=== PATIENT | female | born 1970 | race Caucasian/White ===

== ENCOUNTER 2016-06-27 10:05 | Outpatient (CLI) | payer OTHER | END 2016-06-27 10:06 | disposition home or self-care (01) | DX: R14.0 Abdominal distension (gaseous) (principal); Z13.220 Encounter for screening for lipoid disorders; Z13.1 Encounter for screening for diabetes mellitus ==

== ENCOUNTER 2016-07-07 11:11 | Outpatient (CLI) | payer OTHER | END 2016-07-07 11:12 | disposition home or self-care (01) | DX: R14.0 Abdominal distension (gaseous) (principal); N28.1 Cyst of kidney, acquired ==

== ENCOUNTER 2016-10-04 19:47 | Outpatient (CLI) | payer OTHER ==
--- NOTE | 2016-10-05 11:52 | Ultrasound Report ---
PELVIC ULTRASOUND: 10/04/2016 CLINICAL HISTORY: The patient has distention. TECHNIQUE: Transabdominal pelvic ultrasound performed for global evaluation. Transvaginal pelvic ultr asound performed for detailed evaluation. Real-time scanning performed and static images obtained. FINDINGS: The uterus measures 8.4 cm by 11.4 cm by 4.9 cm for a volume of 94.3 cubic centimeters. Th e endometrial echo complex has a diameter of 9 mm. No enhanced vascular flow is seen within the centr al intrauterine echo. The configuration of the central intrauterine echo complex is within normal retana its for a menstruating female. Equivocal finding is noted in regards to a small hyperechoic fibroid within the anterior myometrium o f the uterine fundus. This measures 2.3 cm by 1.4 cm by 2 cm. The ovaries demonstrate the right ovary to measure 1.9 cm by 1.4 cm. It is not well seen. The left ov alma measures 2.7 cm by 1.7 cm, and also is not well visualized. IMPRESSION: FINDINGS ARE SUSPICIOUS FOR A SMALL MYOMETRIAL FIBROID IN THE ANTERIOR ASPECT OF THE KARLA RINE FUNDUS MEASURING 2.3 CM BY 1.4 CM BY 2 CM. JOB #: [id number] EXT JOB #:[id number]
== END 2016-10-04 19:48 | disposition home or self-care (01) ==
LOC: DI 19:47
PROVIDERS: ATTEND Physician Assistant Medical
DX: R14.0 Abdominal distension (gaseous) (principal)
CPT/HCPCS: 76830; 76856

== ENCOUNTER 2017-06-23 18:40 | Outpatient (CLI) | payer OTHER | END 2017-06-23 18:41 | disposition EMS.NT | LOC: EMS 18:40 | PROVIDERS: ATTEND Surgery | DX: R53.1 Weakness (principal); R20.2 Paresthesia of skin; R53.83 Other fatigue ==

== ENCOUNTER 2017-07-02 08:00 | Outpatient (CLI) | payer OTHER ==
[2017-07-02 18:50] LABS: BASOPHILS # (AUTO) 0.1 10^3/uL (0.0-0.1); BASOPHILS % (AUTO) 1.1 %; EOSINOPHILS # (AUTO) 0.1 10^3/uL (0.0-0.7); EOSINOPHILS % (AUTO) 1.9 %; HGB - HEMOGLOBIN 13.4 g/dL (12.0-16.0); LYMPHOCYTES # (AUTO) 1.7 10^3/uL (1.5-3.5); LYMPHOCYTES % (AUTO) 22.2 %; MEAN CORPUSCULAR HEMOGLOBIN 27.6 pg (27.0-31.0); MEAN CORPUSCULAR HGB CONC 31.9 g/dL (32.0-36.0); MEAN CORPUSCULAR VOLUME 86.5 fL (81.0-99.0); MONOCYTES # (AUTO) 0.4 10^3/uL (0.0-1.0); MONOCYTES % (AUTO) 5.1 %; NEUTROPHILS # (AUTO) 5.2 10^3/uL (1.5-6.6); NEUTROPHILS % (AUTO) 69.7 %; PLT - PLATELET COUNT 352 10^3/uL (130-450); RED BLOOD COUNT 4.85 10^6/uL (4.20-5.40); RED CELL DISTRIBUTION WIDTH 14.4 % (12.0-15.0); WHITE BLOOD COUNT 7.5 x10^3/uL (4.8-10.8)
[2017-07-02 19:07] LABS: ALBUMIN 4.1 g/dL (3.2-5.5); ALBUMIN/GLOBULIN RATIO 1.3 (1.0-2.2); ALKALINE PHOSPHATASE 71 IU/L (42-121); ALT ALANINE AMINOTRANSFERASE 10 IU/L (10-60); AST ASPARTATE AMINOTRANSFERASE 20 IU/L (10-42); BILIRUBIN,TOTAL 0.3 mg/dL (0.2-1.0); BUN - BLOOD UREA NITROGEN 11 mg/dL (6-20); CALCIUM 8.9 mg/dL (8.5-10.3); CARBON DIOXIDE - CO2 23 mmol/L (21-32); CHLORIDE 105 mmol/L (101-111); CHOL/HDL RATIO 3.4 (<4.4); CHOLESTEROL 221 mg/dL; CREATININE 0.7 mg/dL (0.4-1.0); GFR - MDRD 90 (>89); GLUCOSE 80 mg/dL (70-100); HDL CHOLESTEROL 65 mg/dL; LDL CHOLESTEROL,CALCULATED 138 mg/dL; LDL/HDL RATIO 2.1 (<4.4); SODIUM 135 mmol/L (135-145); TOTAL PROTEIN 7.3 g/dL (6.7-8.2); VLDL CHOLESTEROL 18 mg/dL
== END 2017-07-02 08:01 | disposition home or self-care (01) ==
LOC: LAB.WCP 08:00
PROVIDERS: ATTEND Family Medicine
DX: E16.1 Other hypoglycemia (principal)
CPT/HCPCS: 36415; 80053; 80061; 83721; 84443; 85025

== ENCOUNTER 2017-07-11 08:00 | Outpatient (CLI) | payer OTHER ==
[2017-07-11 10:58] LABS: BILIRUBIN,URINE NEGATIVE (NEGATIVE); GLUCOSE, URINE (UA) NEGATIVE (NEGATIVE); KETONES,URINE (UA) NEGATIVE (NEGATIVE); LEUKOCYTE ESTERASE, URINE NEGATIVE (NEGATIVE); NITRITE,URINE NEGATIVE (NEGATIVE); OCCULT BLOOD,URINE NEGATIVE (NEGATIVE); PROTEIN,URINE NEGATIVE (NEGATIVE); UROBILINOGEN,URINE 0.2 (NORMAL) E.U./dL (NORMAL)
[2017-07-11 10:59] LABS: CLARITY,URINE CLEAR (CLEAR)
[2017-07-11 11:16] LABS: BACTERIA,URINE Moderate /HPF (None Seen); RBC,URINE 0-5 /HPF (0-5); SQUAMOUS EPITHELIAL CELL,UR MOD Squamous (<= Few)
[2017-07-11 11:17] LABS: MUCUS,URINE Marked Strands
== END 2017-07-11 08:01 | disposition home or self-care (01) ==
LOC: LAB.R 08:00
PROVIDERS: ATTEND Physician Assistant Medical
DX: N20.0 Calculus of kidney (principal)
CPT/HCPCS: 81001; 87086

== ENCOUNTER 2017-07-11 11:01 | Outpatient (CLI) | payer OTHER ==
--- NOTE | 2017-07-11 11:59 | CT Report ---
CT ABDOMEN AND PELVIS WITHOUT CONTRAST: 07/11/2017 CLINICAL INDICATION: Flank pain, history of kidney stones. TECHNIQUE: Axial CT images of the abdomen and pelvis were obtained without intravenous contrast. COMPARISON: Ultrasound 07/07/2016. FINDINGS: Limited evaluation of the lung bases demonstrates a small hiatal hernia. ABDOMEN: The kidneys demonstrate no evidence of hydronephrosis or nephrolithiasis. Right renal cyst is stable from previous ultrasound. The gallbladder is not dilated. Allowing for the lack of intravenous contrast enhancement, the liver, spleen, pancreas and adrenal glands are unremarkable. No bowel dilatation, free gas, or free fluid is present. No abdominal adenopathy is seen. PELVIS: The pelvic organs appear unremarkable. The appendix is seen in the right lower quadrant, and demonstrates normal caliber. No distal hydroureter or ureterolithiasis is seen. Osseous structures are unremarkable. IMPRESSION: NO EVIDENCE OF NEPHROLITHIASIS OR HYDRONEPHROSIS. NORMAL APPENDIX. NO EVIDENT ETIOLOGY FOR PATIENT'S PAIN. CT DOSE REDUCTION STATEMENT In accordance with CT protocol optimization, one or more of the following dose reduction techniques were utilized for this exam: automated exposure control, adjustment of mA and/or KV based on patient size, or use of iterative reconstructive technique. TD: 07/11/2017 11:59
== END 2017-07-11 11:02 | disposition home or self-care (01) ==
LOC: DI 11:01
PROVIDERS: ATTEND Physician Assistant Medical
DX: R10.9 Unspecified abdominal pain (principal); N20.0 Calculus of kidney
CPT/HCPCS: 74176; 81001; 87086

== ENCOUNTER 2018-09-16 11:23 | Outpatient (CLI) | payer OTHER ==
[2018-09-16 18:25] LABS: BASOPHILS # (AUTO) 0.1 10^3/uL (0.0-0.1); BASOPHILS % (AUTO) 0.8 %; EOSINOPHILS # (AUTO) 0.1 10^3/uL (0.0-0.7); EOSINOPHILS % (AUTO) 1.4 %; HGB - HEMOGLOBIN 13.4 g/dL (12.0-16.0); MEAN CORPUSCULAR HGB CONC 32.7 g/dL (32.0-36.0); MEAN CORPUSCULAR VOLUME 85.6 fL (81.0-99.0); MEAN PLATELET VOLUME 8.7 fL (7.9-10.8); MONOCYTES # (AUTO) 0.5 10^3/uL (0.0-1.0); MONOCYTES % (AUTO) 6.1 %; NEUTROPHILS # (AUTO) 5.4 10^3/uL (1.5-6.6); NEUTROPHILS % (AUTO) 66.7 %; PLT - PLATELET COUNT 382 10^3/uL (130-450); RED BLOOD COUNT 4.77 10^6/uL (4.20-5.40); RED CELL DISTRIBUTION WIDTH 14.6 % (12.0-15.0); WHITE BLOOD COUNT 8.1 x10^3/uL (4.8-10.8)
[2018-09-16 18:35] LABS: ALBUMIN 4.1 g/dL (3.2-5.5); ALBUMIN/GLOBULIN RATIO 1.1 (1.0-2.2); BILIRUBIN,TOTAL 0.7 mg/dL (0.2-1.0); CALCIUM 9.2 mg/dL (8.5-10.3); CREATININE 0.9 mg/dL (0.4-1.0); TOTAL PROTEIN 7.8 g/dL (6.7-8.2)
== END 2018-09-16 11:24 | disposition home or self-care (01) ==
LOC: LAB.F 11:23
PROVIDERS: ATTEND Physician Assistant Medical
DX: Z20.828 Contact with and (suspected) exposure to other viral communicable diseases (principal); R53.83 Other fatigue
CPT/HCPCS: 36415; 80053; 81599; 84443; 85025; 86765

== ENCOUNTER 2018-10-23 16:19 | Outpatient (CLI) | payer OTHER ==
--- NOTE | 2018-10-24 09:15 | CT Report ---
Reason: SINUSITIS, CHRONIC Procedure Date: 10/23/2018 Accession Number: [id number] / [id number] Procedure: CT - Sinuses CPT Code: FULL RESULT: EXAM: CT SINUS EXAM DATE: 10/23/2018 04:47 PM. HISTORY: Sinusitis, chronic. COMPARISONS: SINUS 10/04/2007 1:48 PM (report not provided). TECHNIQUE: Routine multi-axial CT imaging performed through the sinuses. Iodinated IV contrast: None. Reconstructions: Sagittal and coronal. In accordance with CT protocol optimization, one or more of the following dose reduction techniques were utilized for this exam: automated exposure control, adjustment of mA and/or KV based on patient size, or use of iterative reconstructive technique. FINDINGS: RIGHT Frontal: Normal. Ethmoid: Normal. Maxillary: Normal. Sphenoid: Normal. Drainage Pathways: The frontal recess, ostiomeatal complex and sphenoethmoidal recess are patent and normal. LEFT Frontal: Normal. Ethmoid: Normal. Maxillary: Normal. Sphenoid: Normal. Drainage Pathways: The frontal recess, ostiomeatal complex and sphenoethmoidal recess are patent and normal. Nasal Cavity: Normal. No mass or significant anatomic abnormality evident. Note is made of bilateral funmi bullosa air cells within the middle turbinates. Osseous Structures: Unremarkable. The visualized mastoid air cells and middle ear cavities are clear. Orbits: Unremarkable. 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 IMPRESSION: 1. Normal Sinus CT. No sinusitis. RADIA
== END 2018-10-23 16:20 | disposition home or self-care (01) ==
LOC: DI 16:19
PROVIDERS: ATTEND Physician Assistant Medical
DX: J32.9 Chronic sinusitis, unspecified (principal)
CPT/HCPCS: 70486

== ENCOUNTER 2019-02-28 08:00 | Outpatient (CLI) | payer OTHER | END 2019-02-28 08:01 | disposition home or self-care (01) | LOC: LAB.R 08:00 | PROVIDERS: ATTEND Registered Nurse | DX: J02.9 Acute pharyngitis, unspecified (principal); J32.9 Chronic sinusitis, unspecified | CPT/HCPCS: 87070 ==

== ENCOUNTER 2019-05-14 13:43 | Emergency (ER) | payer OTHER, BC ==
[2019-05-14 13:56] VITALS: BP 119/75
--- NOTE | 2019-05-14 14:17 | XRAY Report ---
Reason: Trauma Procedure Date: 05/14/2019 Accession Number: [id number] / [id number] Procedure: XR - Knee 4 View RT CPT Code: Final Report FULL RESULT: EXAM: RIGHT KNEE RADIOGRAPHY EXAM DATE: 05/14/2019 02:11 PM. CLINICAL HISTORY: Right knee pain. COMPARISON: XR ANKLE COMPLETE MIN 3 VIEW 01/07/2007 12:58 PM. TECHNIQUE: 3 views. FINDINGS: Bones: Normal. No fractures or bone lesions. Joints: Normal. No effusion. No subluxations. Soft Tissues: Normal. No soft tissue swelling. IMPRESSION: Normal knee radiography. RADIA
[2019-05-14] MEDS ORDERED: HYDROmorphone 2 MG TABLET PO STA (16:01)
--- NOTE | 2019-05-14 16:07 | ED Physician Documentation ---
PD HPI LOWER EXT INJURY - Stated complaint Stated Complaint: RT KNEE INJ - Chief complaint Chief Complaint: Trauma Ext - History obtained from History obtained from: Patient - History of Present Illness PD HPI LOW EXT INJURY LOCATION: Right, Knee Where injury occurred: Work Pain level max: 8 Pain level now: 6 Improved by: Rest Worsened by: Moving, Palpating - Additional information Additional information: 49-year-old female states that she was at work today when she stood up from her desk and felt a pop in her right knee. Has had pain in the knee since that time. No trauma. No injury. Worse with walking and better with rest. Did not take anything for the pain prior to arrival. 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 - Present Medications Home Medications: Ambulatory Orders Medication Instructions Recorded Confirmed HYDROmorphone [Dilaudid] 2 mg PO Q4H PRN #10 tablet 05/14/19 - Allergies Allergies/Adverse Reactions: Allergies Allergy/AdvReac Type Severity Reaction Status Date / Time acetaminophen [From Vicodin] Allergy Hives Verified 05/14/19 13:47 adhesive tape Allergy Hives Verified 05/14/19 13:47 clarithromycin [From Biaxin] Allergy Hives Verified 05/14/19 13:47 clindamycin Allergy Hives Verified 05/14/19 13:47 hydrocodone [From Vicodin] Allergy Hives Verified 05/14/19 13:47 Penicillins Allergy Hives Verified 05/14/19 13:47 - Social History Does the pt smoke?: No Smoking Status: Never smoker Does the pt drink ETOH?: Yes ETOH Use: Liquor - Immunizations Immunizations are current?: Yes PD ED PE NORMAL - Vitals Vital signs reviewed: Yes - General General: Alert and oriented X 3, No acute distress, Well developed/nourished - HEENT HEENT: Moist mucous membranes - Neck Neck: Supple, no meningeal sign - Cardiac Cardiac: RRR - Respiratory Respiratory: No respiratory distress, Clear bilaterally - Derm Derm: Warm and dry - Extremities Extremities: Other (Tender to palpation on the medial aspect of the right knee. ACL, MCL, PCL, LCL are intact. Mild joint effusion. No swelling. No deformity. Neurovascular intact) - Neuro Neuro: Alert and oriented X 3 - Psych Psych: Normal mood, Normal affect Results - Vitals Vitals: Vital Signs - 24 hr 05/14/19 13:48 Temperature 36.7 C Heart Rate 113 H Respiratory 15 Rate Blood Pressure 119/75 O2 Saturation 98 Oxygen O2 Source Room air - Rads (name of study) Right knee x-ray Radiology: Prelim report reviewed, EMP read contemporaneously, See rad report (No acute abnormality) PD MEDICAL DECISION MAKING - ED course Complexity details: reviewed results, re-evaluated patient, considered differential, d/w patient ED course: Patient with right knee pain of unclear etiology. Possible meniscus injury? We will have her follow-up with her doctor for repeat evaluation in 1 week. Placed in an articulating knee brace for comfort. Neurovascular intact. Patient counseled regarding signs and symptoms for which I believe and urgent re- evaluation would be necessary. Patient with good understanding of and agreement to plan and is comfortable going home at this time This document was made in part using voice recognition software. While efforts are made to proofread this document, sound alike and grammatical errors may oc cur. L&I paperwork filled out. Departure - Departure Disposition: 01 Home, Self Care Clinical Impression: Right knee pain Qualifiers: Chronicity: acute Qualified Code(s): M25.561 - Pain in right knee Condition: Good Instructions: ED Meniscal Injury Knee Poss Follow-Up: Jackelin Yuan PA-C [Primary Care Provider] - [facility] [Provider Group] - Within 1 week Prescriptions: HYDROmorphone [Dilaudid] 2 mg PO Q4H PRN #10 tablet PRN Reason: knee pain Comments: You may bear weight as tolerated. Wear the brace as needed for comfort. You can use crutches as well. You should be reevaluated in 1 week when the swelling has decreased and have orthopedics recheck your knee. Do not drink alcohol or drive while on narcotic pain medicine. Note that many narcotic pain relievers also contain tylenol/acetaminophen. Please ensure that your total dose of acetaminophen from all sources does not exceed 3 grams (3000mg) per day. You may constipated on this medication, take a stool softener such as "Colace" twice a day while you are on it. Also recommend a [id number] laxative such as senna or MiraLAX any day that you do not have a bowel movement. If you received narcotic pain medication in the emergency department, do not drive or operate machinery for the next 24 hours. Discharge Date/Time: 05/14/19 16:57
== END 2019-05-14 16:57 | disposition home or self-care (01) ==
LOC: ED 13:43
DX: M25.561 Pain in right knee (principal); X50.9XXA Other and unspecified overexertion or strenuous movements or postures, initial encounter; Y99.0 Civilian activity done for income or pay
CPT/HCPCS: 73564; 99283; 99284; A9270; 1040M

== ENCOUNTER 2019-07-30 18:00 | Outpatient (CLI) | payer BC | END 2019-07-30 18:01 | disposition home or self-care (01) | LOC: COV 18:00 | PROVIDERS: ATTEND Family Medicine | DX: R50.9 Fever, unspecified (principal); R06.2 Wheezing; R06.02 Shortness of breath | CPT/HCPCS: 81599 ==

== ENCOUNTER 2020-01-08 12:32 | Outpatient (CLI) | payer BC | END 2020-01-08 12:33 | disposition home or self-care (01) | LOC: COV 12:32 | PROVIDERS: ATTEND Family Medicine | DX: U07.1 COVID-19 (principal) ==

== ENCOUNTER 2020-01-11 20:31 | Outpatient (CLI) | payer BC | END 2020-01-11 20:32 | disposition critical access hospital (66) | LOC: EMS 20:31 | PROVIDERS: ATTEND Surgery | DX: R06.02 Shortness of breath (principal); Z20.828 Contact with and (suspected) exposure to other viral communicable diseases | CPT/HCPCS: A0425; A0429 ==

== ENCOUNTER 2020-05-12 12:01 | Outpatient (CLI) | payer BC ==
[2020-05-12 14:55] LABS: BASOPHILS # (AUTO) 0.1 10^3/uL (0.0-0.1); BASOPHILS % (AUTO) 1.4 %; EOSINOPHILS # (AUTO) 0.2 10^3/uL (0.0-0.7); EOSINOPHILS % (AUTO) 2.3 %; LYMPHOCYTES # (AUTO) 1.5 10^3/uL (1.5-3.5); LYMPHOCYTES % (AUTO) 19.6 %; MEAN CORPUSCULAR HGB CONC 32.3 g/dL (32.0-36.0); MEAN CORPUSCULAR VOLUME 89.5 fL (81.0-99.0); MEAN PLATELET VOLUME 9.9 fL (7.9-10.8); MONOCYTES # (AUTO) 0.5 10^3/uL (0.0-1.0); MONOCYTES % (AUTO) 5.9 %; NEUTROPHILS # (AUTO) 5.4 10^3/uL (1.5-6.6); NEUTROPHILS % (AUTO) 70.3 %; PLT - PLATELET COUNT 407 10^3/uL (130-450); RED BLOOD COUNT 4.49 10^6/uL (4.20-5.40); RED CELL DISTRIBUTION WIDTH 13.9 % (12.0-15.0); WHITE BLOOD COUNT 7.7 x10^3/uL (4.8-10.8)
[2020-05-12 15:09] LABS: ALBUMIN 3.8 g/dL (3.2-5.5); ALBUMIN/GLOBULIN RATIO 1.1 (1.0-2.2); BILIRUBIN,TOTAL 0.5 mg/dL (0.2-1.0); CALCIUM 8.8 mg/dL (8.5-10.3); CREATININE 0.6 mg/dL (0.4-1.0); TOTAL PROTEIN 7.2 g/dL (6.7-8.2)
== END 2020-05-12 23:59 | disposition home or self-care (01) ==
LOC: LAB.S 12:01
PROVIDERS: ATTEND Physician Assistant Medical
DX: R21 Rash and other nonspecific skin eruption (principal); R07.0 Pain in throat
CPT/HCPCS: 36415; 80053; 85025; 85651

== ENCOUNTER 2020-06-26 20:56 | Emergency (ER) | payer BC ==
--- NOTE | 2020-06-26 21:41 | ED Physician Documentation ---
PD HPI FOCAL NEURO - Stated complaint Stated Complaint: NUMB FACE - Chief complaint Chief Complaint: Neuro - History obtained from History obtained from: Patient - History of Present Illness Timing - onset: Enter time (18:40), Today Timing - details: Abrupt onset Severity of deficit: Mild Numbness: Face Associated symptoms: No: Headache, Fever Similar symptoms before: Has not had sx before Recently seen: Not recently seen - Additional information Additional information: c/o rapid onset bilateral facial numbness from infraorbital regions to neck with faint erythema. she was at home at rest at time of onset. she felt hot (per patient) but took her temperature and it was normal. she thought it might be an allergic reaction and thus took three benadryl without apparent improvement. denies h/o similar symptoms. denies headache, dyspnea, pruritis, lightheadedness. denies oropharyngeal swelling or constriction Review of Systems Constitutional: denies: Fever Eyes: reports: Reviewed and negative Ears: reports: Reviewed and negative Nose: reports: Congestion (currently being treated for sinus infection with antibiotic (bactrim) and tessalon ; she has taken these for 3 days with most recent doses taken this morning) Throat: denies: Sore throat Cardiac: reports: Reviewed and negative Respiratory: reports: Reviewed and negative GI: reports: Other (heartburn (per patient) started in ED while awaiting evaluation). 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 - Present Medications Home Medications: Ambulatory Orders Medication Instructions Recorded Confirmed Acetaminophen with Codeine PO PRN PRN 06/26/20 [Acetaminop-Codeine 120-12 mg/5] Amitriptyline [Elavil] 75 mg PO QPM 06/26/20 06/26/20 Azelastine/Fluticasone [Dymista 1 spray MADI DAILY 06/26/20 06/26/20 Nasal [place]] Montelukast [Singulair] 10 mg PO DAILY 06/26/20 06/26/20 SULFAM/TRIM 800/160 Prepack 2 06/26/20 [BACTRIM DS 800/160 Prepack 2] predniSONE [Prednisone 21-TAB dose 06/26/20 pack] - Allergies Allergies/Adverse Reactions: Allergies Allergy/AdvReac Type Severity Reaction Status Date / Time acetaminophen [From Vicodin] Allergy Hives Verified 01/11/20 21:48 adhesive tape Allergy Hives Verified 01/11/20 21:48 clarithromycin [From Biaxin] Allergy Hives Verified 01/11/20 21:48 clindamycin Allergy Hives Verified 01/11/20 21:48 hydrocodone [From Vicodin] Allergy Hives Verified 01/11/20 21:48 Penicillins Allergy Hives Verified 01/11/20 21:48 - Social History Does the pt smoke?: No Smoking Status: Never smoker Does the pt drink ETOH?: Yes Does the pt have substance abuse?: No - Immunizations Immunizations are current?: Yes PD ED PE NORMAL - Vitals Vital signs reviewed: Yes - General General: Alert and oriented X 3, No acute distress, Well developed/nourished - HEENT HEENT: Moist mucous membranes, Pharynx benign - Neck Neck: Supple, no meningeal sign - Cardiac Cardiac: RRR, No murmur - Respiratory Respiratory: No respiratory distress, Clear bilaterally - Derm Derm: Normal color, Other (I do not appreciate any facial erythema on my exam) - Neuro Neuro: Alert and oriented X 3, No motor deficit, No sensory deficit (subjective, mild decreased LTS bilateral face infraorbital regions , chin, mandible, anterior upper neck), Normal speech Results - Vitals Vitals: Vital Signs - 24 hr 06/26/20 06/26/20 06/26/20 20:58 21:32 22:02 Temperature 36.2 C L Heart Rate 115 H 111 H 102 H Respiratory 18 16 18 Rate Blood Pressure 141/105 H 139/84 H 138/87 H O2 Saturation 98 100 98 06/26/20 06/26/20 06/26/20 22:30 23:00 23:35 Temperature Heart Rate 98 93 94 Respiratory 18 13 20 Rate Blood Pressure 132/80 H 128/82 H 128/82 H O2 Saturation 100 99 100 Oxygen O2 Source Room air - Labs Labs: Laboratory Tests 06/26/20 06/26/20 06/26/20 21:10 21:10 21:10 WBC 12.9 H RBC 4.60 Hgb 13.2 Hct 40.3 MCV 87.6 MCH 28.7 MCHC 32.8 RDW 14.2 Plt Count 537 H MPV 9.6 Neut # (Auto) 11.2 H Lymph # (Auto) 1.4 L [place] # (Auto) 0.1 Eos # (Auto) 0.0 Baso # (Auto) 0.0 Absolute Nucleated RBC 0.00 Nucleated RBC % 0.0 Sodium 137 Potassium 3.4 L Chloride 100 L Carbon Dioxide 22 Anion Gap 15.0 H BUN 12 Creatinine 1.0 Estimated GFR (MDRD) 59 L Glucose 112 H Calcium 10.1 Total Bilirubin 0.4 AST 21 ALT 15 Alkaline Phosphatase 85 Total Protein 8.7 H Albumin 4.4 Globulin 4.3 H Albumin/Globulin Ratio 1.0 Lipase 29 TSH 0.36 PD MEDICAL DECISION MAKING - ED course Complexity details: reviewed results, re-evaluated patient, considered differential, d/w patient ED course: NAD during ED stay and stable vitals although mild tachycardia noted, given IV fluids with subsequent normal heart rate. I do not see any erythema nor swelling of the face. 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 localized allergic reaction also unlikely given lack of findings on exam and description would be atypical for this. her tests are reassuring and nondiagnostic. further emergent testing not indicated at this time and she is instructed to return if worse, follow up with PMD in 3-5 days Departure - Departure Disposition: 01 Home, Self Care Clinical Impression: Paresthesias Condition: Good Instructions: ED Paraesthesias Follow-Up: MURRAY HINOJOSA PA-C [Primary Care Provider] - Discharge Date/Time: 06/26/20 23:45
[2020-06-26] MEDS ORDERED: FAMOTIDINE 20 MG/2 ML VIAL IVP STA (22:03)
[2020-06-26] MEDS ORDERED: SODIUM CHLORIDE 0.9% 500 ML IV STA (22:04)
[2020-06-26 22:08] LABS: BASOPHILS % (AUTO) 0.2 %; EOSINOPHILS % (AUTO) 0.1 %; HCT - HEMATOCRIT 40.3 % (37.0-47.0); HGB - HEMOGLOBIN 13.2 g/dL (12.0-16.0); LYMPHOCYTES # (AUTO) 1.4 10^3/uL (1.5-3.5); LYMPHOCYTES % (AUTO) 10.9 %; MEAN CORPUSCULAR HEMOGLOBIN 28.7 pg (27.0-31.0); MEAN CORPUSCULAR HGB CONC 32.8 g/dL (32.0-36.0); MEAN CORPUSCULAR VOLUME 87.6 fL (81.0-99.0); MEAN PLATELET VOLUME 9.6 fL (7.9-10.8); MONOCYTES # (AUTO) 0.1 10^3/uL (0.0-1.0); MONOCYTES % (AUTO) 1.1 %; NEUTROPHILS # (AUTO) 11.2 10^3/uL (1.5-6.6); NEUTROPHILS % (AUTO) 86.6 %; PLT - PLATELET COUNT 537 10^3/uL (130-450); RED CELL DISTRIBUTION WIDTH 14.2 % (12.0-15.0); WHITE BLOOD COUNT 12.9 x10^3/uL (4.8-10.8)
[2020-06-26 22:22] LABS: ALBUMIN 4.4 g/dL (3.2-5.5); BILIRUBIN,TOTAL 0.4 mg/dL (0.2-1.0); CALCIUM 10.1 mg/dL (8.5-10.3); POTASSIUM 3.4 mmol/L (3.5-5.0); TOTAL PROTEIN 8.7 g/dL (6.7-8.2)
[2020-06-26 23:04] VITALS: BP 128/82
== END 2020-06-26 23:45 | disposition home or self-care (01) ==
LOC: ED 20:56
DX: R20.2 Paresthesia of skin (principal)
CPT/HCPCS: 36415; 80053; 83690; 84443; 85025; 96361; 96374; 99284

== ENCOUNTER 2020-07-29 08:00 | Outpatient (CLI) | payer BC | END 2020-07-29 23:59 | disposition home or self-care (01) | LOC: LAB.S 08:00 | PROVIDERS: ATTEND Physician Assistant Medical | DX: R05 Cough (principal) ==

== ENCOUNTER 2020-07-29 11:49 | Outpatient (CLI) | payer BC ==
--- NOTE | 2020-07-29 14:21 | XRAY Report ---
PROCEDURE: Chest 2 View X-Ray INDICATIONS: COUGH TECHNIQUE: 2 view(s) of the chest. COMPARISON: 01/11/2020. FINDINGS: Surgical changes and devices: Fusion hardware in lower cervical spine are seen.. Lungs and pleura: No pleural effusions or pneumothorax. Lungs are clear. Mediastinum: Mediastinal contours are normal. Heart size is normal. Bones and chest wall: No suspicious bony abnormalities. Soft tissues appear unremarkable. IMPRESSION: No acute cardiopulmonary pathology. Reviewed by: Ricky Andrew MD on 07/29/2020 1:20 PM AKDT Approved by: Ricky Andrew MD on 07/29/2020 1:20 PM AKDT Station ID: [id number]
== END 2020-07-29 23:59 | disposition home or self-care (01) ==
LOC: DI.S 11:49
PROVIDERS: ATTEND Physician Assistant Medical
DX: R05 Cough (principal); Z20.822 Contact with and (suspected) exposure to COVID-19

== ENCOUNTER 2020-09-10 08:00 | Outpatient (CLI) | payer BC | END 2020-09-10 23:59 | disposition home or self-care (01) | LOC: LAB.S 08:00 | PROVIDERS: ATTEND Emergency Medicine | DX: R30.0 Dysuria (principal) | CPT/HCPCS: 87086 ==

== ENCOUNTER 2020-10-04 14:04 | Outpatient (CLI) | payer BC ==
[2020-10-04 20:09] LABS: CHOL/HDL RATIO 3.6 (<4.4); CHOLESTEROL 232 mg/dL; HDL CHOLESTEROL 65 mg/dL; LDL CHOLESTEROL,CALCULATED 140 mg/dL; LDL/HDL RATIO 2.2 (<4.4); TRIGLYCERIDES 137 mg/dL; VLDL CHOLESTEROL 27 mg/dL
== END 2020-10-04 14:05 | disposition home or self-care (01) ==
LOC: LAB.S 14:04
PROVIDERS: ATTEND Physician Assistant
DX: U07.1 COVID-19 (principal); Z82.49 Family history of ischemic heart disease and other diseases of the circulatory system; R30.0 Dysuria
CPT/HCPCS: 36415; 80061; 83721

== ENCOUNTER 2020-12-31 15:07 | Outpatient (CLI) | payer BC | END 2020-12-31 15:08 | disposition home or self-care (01) | LOC: COV 15:07 | PROVIDERS: ATTEND Family Medicine | DX: Z20.822 Contact with and (suspected) exposure to COVID-19 (principal) ==

== ENCOUNTER 2021-08-25 08:00 | Outpatient (CLI) | payer BC, OTHER ==
--- NOTE | 2021-08-25 17:18 | XRAY Report ---
PROCEDURE: Chest 2 View X-Ray INDICATIONS: CHEST PAIN/THORACIC BACK PAIN TECHNIQUE: 2 view(s) of the chest. COMPARISON: 07/29/2020.. FINDINGS: Surgical changes and devices: Cervical spine fixation hardware.. Lungs and pleura: No pleural effusions or pneumothorax. Lungs are clear. Mediastinum: Mediastinal contours are normal. Heart size is normal. Bones and chest wall: No suspicious bony abnormalities. Soft tissues appear unremarkable. IMPRESSION: No acute cardiopulmonary disease process. Reviewed by: Elle Salvador MD, PhD on 08/25/2021 5:16 PM PDT Approved by: Elle Salvador MD, PhD on 08/25/2021 5:16 PM PDT Station ID: [id number]
== END 2021-08-25 23:59 | disposition home or self-care (01) ==
LOC: DI.S 08:00
PROVIDERS: ATTEND Physician Assistant Medical
DX: R07.1 Chest pain on breathing (principal); M54.6 Pain in thoracic spine

== ENCOUNTER 2022-08-08 12:55 | Outpatient (CLI) | payer OTHER | END 2022-08-08 23:59 | disposition home or self-care (01) | LOC: LAB.S 12:55 | PROVIDERS: ATTEND Physician Assistant Medical | DX: J02.9 Acute pharyngitis, unspecified (principal) | CPT/HCPCS: 87070 ==

== ENCOUNTER 2022-08-30 19:58 | Emergency (ER) | payer OTHER ==
[2022-08-30 20:13] VITALS: BP 141/88
--- OUTSIDE RECORDS SUMMARY | 2022-08-30 20:45 | EXTERNAL MEDICAL SUMMARY RPT | Continuity of Care Document ---
Author Name Unknown Address [address] [place] [address] Phone Organization [facility] Address [address] [place] [address] Phone Care Team Providers Care Motor Teacher Name Role Phone Unavailable Unavailable Unavailable Jackelin Yuan Pa-C Unavailable Unavailable Medications date description facility 2022-08-08 00:00 [facility]otidine [facility] 2022-08-09 00:00 famotidine [facility] 2022-08-10 00:00 famotidine [facility] 2022-08-14 00:00 famotidine [facility] 2022-08-08 00:00 ALPRAZOLAM [facility] 2022-08-09 00:00 ALPRAZOLAM [facility] 2022-08-10 00:00 ALPRAZOLAM [facility] 2022-08-14 00:00 ALPRAZOLAM [facility] 2022-08-08 00:00 propranolol [facility] 2022-08-09 00:00 propranolol [facility] 2022-08-10 00:00 propranolol [facility] 2022-08-14 00:00 propranolol [facility] 2022-08-08 00:00 cyanocobalamin (vitamin b-12) [facility] 2022-08-09 00:00 cyanocobalamin (vitamin b-12) [facility] 2022-08-10 00:00 cyanocobalamin (vitamin b-12) [facility] [place] 2022-08-14 00:00 cyanocobalamin (vitamin b-12) [facility] [place] 2022-08-08 00:00 norethindrone acetate [facility] [place] 2022-08-09 00:00 norethindrone acetate [facility] [place] 2022-08-10 00:00 norethindrone acetate [facility] [place] 2022-08-14 00:00 norethindrone acetate [facility] [place] 2022-08-08 00:00 TRAZODONE HCL [facility] [place] 2022-08-09 00:00 TRAZODONE HCL [facility] [place] 2022-08-10 00:00 TRAZODONE HCL [facility] [place] 2022-08-14 00:00 TRAZODONE HCL [facility] [place] 2022-08-08 00:00 amitriptyline [facility] [place] 2022-08-09 00:00 amitriptyline [facility] [place] 2022-08-10 00:00 amitriptyline [facility] [place] 2022-08-14 00:00 amitriptyline [facility] [place] 2022-08-08 00:00 vitamin b complex [facility] [place] 2022-08-09 00:00 vitamin b complex [facility] [place] 2022-08-10 00:00 vitamin b complex [facility] [place] 2022-08-14 00:00 vitamin b complex [facility] [place] 2022-08-08 00:00 [facility]indrone [facility] [place] 2022-08-09 00:00 norethindrone acetate [facility] [place] 2022-08-10 00:00 norethindrone acetate [facility] [place] 2022-08-14 00:00 norethindrone acetate [facility] [place] 2022-08-08 00:00 DIPHENHYDRAMINE HCL [facility] [place] 2022-08-08 00:00 amitriptyline [facility] [place] 2022-08-09 00:00 amitriptyline [facility] [place] 2022-08-10 00:00 amitriptyline [facility] [place] 2022-08-14 00:00 amitriptyline [facility] [place] 2022-08-08 00:00 vitamin b complex [facility] [place] 2022-08-09 00:00 vitamin b complex [facility] [place] 2022-08-10 00:00 vitamin b complex [facility] [place] 2022-08-14 00:00 vitamin b complex [facility] [place] 2022-08-08 00:00 propranolol [facility] [place] 2022-08-09 00:00 propranolol [facility] [place] 2022-08-10 00:00 propranolol [facility] [place] 2022-08-14 00:00 propranolol [facility] [place] 2022-08-08 00:00 TRAZODONE HCL [facility] [place] 2022-08-09 00:00 TRAZODONE HCL [facility] [place] 2022-08-10 00:00 TRAZODONE HCL [facility] [place] 2022-08-14 00:00 TRAZODONE HCL [facility] [place] 2022-08-08 00:00 norethindrone acetate [facility] [place] 2022-08-09 00:00 norethindrone acetate [facility] [place] 2022-08-10 00:00 norethindrone acetate [facility] [place] 2022-08-14 00:00 norethindrone acetate [facility] [place] 2022-08-08 00:00 famotidine [facility] [place] 2022-08-09 00:00 famotidine [facility] [place] 2022-08-10 00:00 famotidine [facility] [place] 2022-08-14 00:00 famotidine [facility] [place] 2022-08-08 00:00 norethindrone acetate [facility] [place] 2022-08-09 00:00 norethindrone acetate [facility] [place] 2022-08-10 00:00 norethindrone acetate [facility] [place] 2022-08-14 00:00 norethindrone acetate [facility] [place] 2022-08-08 00:00 ALPRAZOLAM [facility] [place] 2022-08-09 00:00 ALPRAZOLAM [facility] [place] 2022-08-10 00:00 ALPRAZOLAM [facility] [place] 2022-08-14 00:00 ALPRAZOLAM [facility] [place] 2022-08-08 00:00 cyanocobalamin (vitamin b-12) [facility] [place] 2022-08-09 00:00 cyanocobalamin (vitamin b-12) [facility] [place] 2022-08-10 00:00 cyanocobalamin (vitamin b-12) [facility] [place] 2022-08-14 00:00 cyanocobalamin (vitamin b-12) [facility] [place] 2022-08-08 00:00 DEXAMETHASONE SODIUM PHOSPHATE [facility] [place] 2022-08-08 00:00 famotidine [facility] [place] 2022-08-09 00:00 famotidine [facility] [place] 2022-08-10 00:00 famotidine [facility] [place] 2022-08-14 00:00 famotidine [facility] [place] 2022-08-08 00:00 sumatriptan succinate [facility]In [facility] [place] 2022-08-09 00:00 sumatriptan succinate [facility] [place] 2022-08-10 00:00 sumatriptan succinate [facility] [place] 2022-08-14 00:00 sumatriptan succinate [facility] [place] 2022-08-08 00:00 propranolol [facility] [place] 2022-08-09 00:00 propranolol [facility] [place] 2022-08-10 00:00 propranolol [facility] [place] 2022-08-14 00:00 propranolol [facility] [place] 2022-08-08 00:00 sumatriptan succinate [facility] [place] 2022-08-09 00:00 sumatriptan succinate [facility] [place] 2022-08-10 00:00 sumatriptan succinate [facility] [place] 2022-08-14 00:00 sumatriptan succinate [facility] [place] 2022-08-08 00:00 famotidine [facility] [place] 2022-08-09 00:00 famotidine [facility] [place] 2022-08-10 00:00 famotidine [facility] [place] 2022-08-14 00:00 famotidine [facility] [place] 2022-08-08 00:00 vitamin b complex [facility] [place] 2022-08-09 00:00 vitamin b complex [facility] [place] 2022-08-10 00:00 vitamin b complex [facility] [place] 2022-08-14 00:00 vitamin b complex [facility] [place] 2022-08-08 00:00 cyanocobalamin (vitamin b-12) [facility] [place] 2022-08-09 00:00 cyanocobalamin (vitamin b-12) [facility] [place] 2022-08-10 00:00 cyanocobalamin (vitamin b-12) [facility] [place] 2022-08-14 00:00 cyanocobalamin (vitamin b-12) [facility] [place] 2022-08-08 00:00 ALPRAZOLAM [facility] [place] 2022-08-09 00:00 ALPRAZOLAM [facility] [place] 2022-08-10 00:00 ALPRAZOLAM [facility] [place] 2022-08-14 00:00 ALPRAZOLAM [facility] [place] 2022-08-08 00:00 TRAZODONE HCL [facility] [place] 2022-08-09 00:00 TRAZODONE HCL [facility] [place] 2022-08-10 00:00 TRAZODONE HCL [facility] [place] 2022-08-14 00:00 TRAZODONE HCL [facility] [place] 2022-08-08 00:00 amitriptyline [facility] [place] 2022-08-09 00:00 amitriptyline [facility] [place] 2022-08-10 00:00 amitriptyline [facility] [place] 2022-08-14 00:00 amitriptyline [facility] [place] 2022-08-08 00:00 sumatriptan succinate [facility] [place] 2022-08-09 00:00 sumatriptan succinate [facility] [place] 2022-08-10 00:00 sumatriptan succinate [facility] [place] 2022-08-14 00:00 sumatriptan succinate [facility] [place] 2022-08-08 00:00 sumatriptan succinate [facility] [place] 2022-08-09 00:00 sumatriptan succinate [facility] [place] 2022-08-10 00:00 sumatriptan succinate [facility] [place] 2022-08-14 00:00 sumatriptan succinate [facility] [place] 2022-08-08 00:00 vitamin b complex [facility] [place] 2022-08-09 00:00 vitamin b complex [facility] [place] 2022-08-10 00:00 vitamin b complex [facility] [place] 2022-08-14 00:00 vitamin b complex [facility] [place] 2022-08-08 00:00 cyanocobalamin (vitamin b-12) [facility] [place] 2022-08-09 00:00 cyanocobalamin (vitamin b-12) [facility] [place] 2022-08-10 00:00 cyanocobalamin (vitamin b-12) [facility] [place] 2022-08-14 00:00 cyanocobalamin (vitamin b-12) [facility] [place] 2022-08-08 00:00 TRAZODONE HCL [facility] [place] 2022-08-09 00:00 TRAZODONE HCL [facility] [place] 2022-08-10 00:00 TRAZODONE HCL [facility] [place] 2022-08-14 00:00 TRAZODONE HCL [facility] [place] 2022-08-08 00:00 propranolol [facility] [place] 2022-08-09 00:00 propranolol [facility] [place] 2022-08-10 00:00 propranolol [facility] [place] 2022-08-14 00:00 propranolol [facility] [place] 2022-08-08 00:00 amitriptyline [facility] [place] 2022-08-09 00:00 amitriptyline [facility] [place] 2022-08-10 00:00 amitriptyline [facility] [place] 2022-08-14 00:00 amitriptyline [facility] [place] 2022-08-08 00:00 ALPRAZOLAM [facility] [place] 2022-08-09 00:00 ALPRAZOLAM [facility] [place] 2022-08-10 00:00 ALPRAZOLAM [facility] [place] 2022-08-14 00:00 ALPRAZOLAM [facility] [place] Problems date description facility 2022-08-08 00:00 Insomnia [facility] [place] 2022-08-08 00:00 Anxiety disorder [facility] [place] 2022-08-08 00:00 Family problems [facility] [place] 2022-08-08 00:00 Family history of alcoholism [facility] [place] 2022-08-08 00:00 Anxiety state, unspecified [facility] [place] 2022-08-08 00:00 Depressive disorder, not elsewhere classified [facility] [place] 2022-08-08 00:00 Depressive disorder [facility] [place] 2022-08-08 00:00 Major depressive dis order, single episode, unspecified [facility] [place] 2022-08-08 00:00 Anxiety disorder, unspecified [facility] [place] 2022-08-08 00:00 Insomnia, unspecified [facility] [place] 2022-08-08 00:00 Alcoholism in family Walk-In [facility] [place] 2022-08-08 00:00 Unspecified family circumstance [facility]In [facility] [place] 2022-08-08 00:00 Problem related to p rimary support group, unspecified [facility] [place] 2022-08-08 00:00 Family history of al cohol abuse and dependence [facility] [place] 2022-08-09 00:00 Insomnia [facility] [place] 2022-08-09 00:00 Anxiety disorder [facility] [place] 2022-08-09 00:00 Family problems [facility] [place] 2022-08-09 00:00 Family history of alcoholism [facility] [place] 2022-08-09 00:00 Anxiety state, unspecified [facility] [place] 2022-08-09 00:00 Depressive disorder, not elsewhere classified [facility] [place] 2022-08-09 00:00 Depressive disorder [facility] [place] 2022-08-09 00:00 Major depressive dis order, single episode, unspecified [facility] [place] 2022-08-09 00:00 Anxiety disorder, unspecified [facility] [place] 2022-08-09 00:00 Insomnia, unspecified [facility] [place] 2022-08-09 00:00 Alcoholism in family Walk-In [facility] [place] 2022-08-09 00:00 Unspecified family circumstance [facility] [place] 2022-08-09 00:00 Problem related to p rimary support group, unspecified [facility] [place] 2022-08-09 00:00 Family history of al cohol abuse and dependence [facility] [place] 2022-08-10 00:00 Insomnia [facility] [place] 2022-08-10 00:00 Anxiety disorder [facility] [place] 2022-08-10 00:00 Family problems [facility] [place] 2022-08-10 00:00 Family history of alcoholism [facility] [place] 2022-08-10 00:00 Anxiety state, unspecified [facility] [place] 2022-08-10 00:00 Depressive disorder, not elsewhere classified [facility] [place] 2022-08-10 00:00 Depressive disorder [facility] [place] 2022-08-10 00:00 Major depressive dis order, single episode, unspecified [facility] [place] 2022-08-10 00:00 Anxiety disorder, unspecified [facility] [place] 2022-08-10 00:00 Insomnia, unspecified [facility] [place] 2022-08-10 00:00 Alcoholism in family [facility] [place] 2022-08-10 00:00 Unspecified family circumstance [facility] [place] 2022-08-10 00:00 Problem related to p rimary support group, unspecified [facility] [place] 2022-08-10 00:00 Family history of al cohol abuse and dependence [facility] [place] 2022-08-14 00:00 Insomnia [facility] [place] 2022-08-14 00:00 Anxiety disorder [facility] [place] 2022-08-14 00:00 Family problems [facility] [place] 2022-08-14 00:00 Family history of alcoholism [facility] [place] 2022-08-14 00:00 Anxiety state, unspecified [facility] [place] 2022-08-14 00:00 Depressive disorder, not elsewhere classified [facility] [place] 2022-08-14 00:00 Depressive disorder [facility] [place] 2022-08-14 00:00 Major depressive dis order, single episode, unspecified [facility] [place] 2022-08-14 00:00 Anxiety disorder, unspecified [facility] [place] 2022-08-14 00:00 Insomnia, unspecified [facility] [place] 2022-08-14 00:00 Alcoholism in family [facility] [place] 2022-08-14 00:00 Unspecified family circumstance [facility] [place] 2022-08-14 00:00 Problem related to p rimary support group, unspecified [facility] [place] 2022-08-14 00:00 Family history of al cohol abuse and dependence [facility] [place] Procedures date description facility 2022-08-08 00:00 Visit Code Hold [facility] [place] 2022-08-08 00:00 Throat Culture [facility] [place] [facility] 2022-08-08 00:00 POC STREP TEST [facility] [place] Results/Labs test date author facility value unit interpretation Result panel 1 (unknown) (no date) (unknown) [facility] [place] [facility] (no value) (units unknown) (unknown) Result panel 2 (unknown) (no date) (unknown) [facility] [place] [facility] (no value) (units unknown) (unknown) Result panel 3 (unknown) (no date) (unknown) [facility] [place] [facility] (no value) (units unknown) (unknown) Result panel 4 (unknown) (no date) (unknown) [facility] [place] [facility] (no value) (units unknown) (unknown) Result panel 5 (unknown) (no date) (unknown) [facility] [place] (no value) (units unknown) (unknown) Result panel 6 (unknown) (no date) (unknown) [facility] [place] (no value) (units unknown) (unknown) Result panel 7 (unknown) (no date) (unknown) [facility] [place] (no value) (units unknown) (unknown) Result panel 8 (unknown) (no date) (unknown) [facility] [place] (no value) (units unknown) (unknown) Social History date description facility 2022-08-08 00:00 Never smoker [facility] [place] Vital Signs date measurement value units 2022-08-08 00:00 BMI 40.63 kg/m2 2022-08-08 00:00 BP_diastolic 68 mmHg 2022-08-08 00:00 BP_systolic 123 mmHg 2022-08-08 00:00 heart_rate 97 /min 2022-08-08 00:00 height_metric 161.93 cm 2022-08-08 00:00 height_standard 63.75 in 2022-08-08 00:00 respiration_rate 18 /min 2022-08-08 00:00 temperature_metric 36.83 C 2022-08-08 00:00 temperature_standard 98.3 F 2022-08-08 00:00 weight_metric 106.14 kg 2022-08-08 00:00 weight_standard 234 lb
--- NOTE | 2022-08-30 21:08 | ED Physician Documentation ---
History of Present Illness - Stated complaint Stated Complaint: FALL/R KNEE/L ANKLE INJ - Chief complaint Chief Complaint: Ext Problem - Additonal information Additional information: 52-year-old female presents emergency department for evaluation of acute right knee and left ankle pain. 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 Did not strike her head or lose consciousness. She is not anticoagulated. She has only been able to get around by using A wheeling chair today. Patient states that initially it was her left ankle that was bothering her but over time the right knee has become exquisitely painful and she is now no longer able to bear weight. No history of previous injury to either knee or ankle. 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, Other : Kidney stones HEENT: Other Psych: None, Depression, Anxiety Musculoskeletal: None - Past Surgical History Past Surgical History: Yes Ortho: Spine surgery /MEASUREMENT SUPERVISOR: section - Present Medications Home Medications: Ambulatory Orders Medication Instructions Recorded Confirmed Acetaminophen with Codeine PO PRN PRN 06/26/20 [Acetaminop-Codeine 120-12 mg/5] Amitriptyline [Elavil] 75 mg PO QPM 06/26/20 06/26/20 Azelastine/Fluticasone [Dymista 1 spray MADI DAILY 06/26/20 06/26/20 Nasal [place]] Montelukast [Singulair] 10 mg PO DAILY 06/26/20 06/26/20 SULFAM/TRIM 800/160 Prepack 2 06/26/20 [BACTRIM DS 800/160 Prepack 2] predniSONE [Prednisone 21-TAB dose 06/26/20 pack] oxyCODONE [Roxicodone] 5 mg PO TID PRN #20 tablet 08/30/22 - Allergies Allergies/Adverse Reactions: Allergies Allergy/AdvReac Type Severity Reaction Status Date / Time acetaminophen [From Vicodin] Allergy Hives Verified 01/11/20 21:48 adhesive tape Allergy Hives Verified 01/11/20 21:48 clarithromycin [From Biaxin] Allergy Hives Verified 01/11/20 21:48 clindamycin Allergy Hives Verified 01/11/20 21:48 hydrocodone [From Vicodin] Allergy Hives Verified 01/11/20 21:48 Penicillins Allergy Hives Verified 01/11/20 21:48 - Social History Does the pt smoke?: No Smoking Status: Never smoker Does the pt drink ETOH?: Yes Does the pt have substance abuse?: No - Immunizations Immunizations are current?: Yes - POLST Patient has POLST: No PD ED PE EXPANDED - Extremities Extremities: Right knee (No swelling noted. No ecchymosis. Focal tenderness of the left lateral proximal tibial head. No laxity. Distal 2+ pulse), Left ankle Results - Vitals Vitals: Vital Signs - 24 hr 08/30/22 08/30/22 08/30/22 20:10 20:53 21:31 Temperature 36.7 C Heart Rate 103 H Respiratory 16 16 17 Rate Blood Pressure 141/88 H O2 Saturation 97 Oxygen O2 Source Room air - Rads (name of study) right knee Relevant Findings:: EMP independent interpretation of test (No acute fracture or dislocation. She does have joint narrowing of the medial space of the right knee.) left ankle Relevant Findings:: EMP independent interpretation of test (Moderate swelling over the lateral malleolus. No obvious fracture dislocation) PD Medical Decision Making - ED course Complexity details: reviewed results, re-evaluated patient, considered differential, d/w patient ED course: 52-year-old female presents to the emergency department for evaluation of acute right knee and left ankle pain. 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 Did not strike her head or lose consciousness. Denies pain in the neck or back otherwise. On exam exquisitely tender right knee on the medial proximal tibial region. I have interpreted the x-ray as having no acute findings to suggest fracture. Given that I do see that she has a narrowed joint space and I do suspect she could have activated knee arthritis. But given how tender she is she was placed in a knee immobilizer and given crutches. I have also evaluated the left ankle x-ray and per my personal interpretation no acute fracture is noted. She was placed in an air gel splint stirrup I discussed with patient that with a simple ankle sprain I expect her pain inability to bear weight to be markedly better over the next 7 to 10 days. If not better and L&I provider could make referral for her to orthopedics. I will notify the patient personally if the x-ray imaging as interpreted by radiologist is different than my findings. I am prescribing a short course of short-acting opioid pain medication for this patient. I have reviewed the patients UNDERWRITING SPECIALIST and no concerning findings were noted. I have discussed that the opioids are for short term therapy only, and will not be refilled from the ED. [employer] [id number] completed at the bedside Departure - Departure Disposition: 01 Home, Self Care Clinical Impression: Arthritis of knee, right Contusion of right knee Qualifiers: Encounter type: initial encounter Qualified Code(s): S80.01XA - Contusion of right knee, initial encounter Moderate left ankle sprain Qualifiers: Encounter type: initial encounter Qualified Code(s): S93.402A - Sprain of unspecified ligament of left ankle, initial encounter Condition: Stable Follow-Up: NAE GAGE MD [Primary Care Provider] - Prescriptions: oxyCODONE [Roxicodone] 5 mg PO TID PRN #20 tablet PRN Reason: Pain Comments: Kamilla you had a fall down the stairs today while at work. You had immediate swelling of your left ankle but over time your right knee has become much more painful. I have evaluated both x-ray images and do not find obvious fracture in both. I do see that you have some arthritis developing in the knee and I suspect that when you hit it you may have activated the arthritis causing your pain. We have given you a knee immobilizer and crutches in order to aid you getting around. However if you find that over the next several days your symptoms or not getting better you should follow-up with your [facility] provider and obtain referral to an orthopedist for further evaluation. Also as discussed at the bedside I do not see an obvious fracture in your left ankle. I suspect that the cause of this injury is a sprain. You are be given a stirrup splint to help with pain. Continue to ice the ankle. I would expect with simple sprain that pain swelling inability to bear weight on the ankle is markedly better over the next 7 to 10 days. Again if not improved please follow closely with your [facility] provider for further evaluation with an orthopedist. I would like you to be nonweightbearing on this right knee until you are seen by a [employer] [facility] provider. If the radiologist interprets the x-rays differently than I have or finds any findings to suggest an occult or difficult to see fracture you will be notified. I am prescribing a short course of narcotic pain medication for you. These are potentially dangerous and addictive medications that should be used carefully. These medications may constipate you. Take an [id number] stool softener (docusate) twice daily with plenty of water while taking these medications. If you go 24 hours without a bowel movement, take [id number] miralax, per package instructions. Do not drink or drive while taking these medications. If you received narcotic or sedating medications while in the emergency department, do not drive for 24 hours. Store this medication in a safe, secure place and out of reach of children. It is a violation of federal law to give or sell this medication to another person or to use in a manner other than prescribed. The ED will not refill narcotic prescriptions, including prescriptions lost or stolen. To dispose of unwanted medications: 1. [facility] [address] in [place] has a medication drop box. They accept prescription medications (in pill form) Sunday through Sunday 9:00 a.m. to 5:00 p.m. 2. The [facility] accepts prescription medications (in pill form only) for disposal year round. Call for more information. 3. Contact the [facility] for the next [facility] sponsored prescription drug collection event. , [phone], or [phone]; Note that many narcotic pain relievers also contain Tylenol/acetaminophen. Please ensure that your total dose of acetaminophen from all sources does not exceed 3 g (3000 mg) per day.
[2022-08-30] MEDS ORDERED: oxyCODONE 5 MG TABLET PO STA (21:23)
--- NOTE | 2022-08-30 21:42 | XRAY Report ---
PROCEDURE: Knee 3 View RT INDICATIONS: pain after fall TECHNIQUE: 3 views of the right knee were acquired. COMPARISON: None. FINDINGS: Bones: No fractures or dislocations. No suspicious bony lesions. Soft tissues: No knee joint effusion. No suspicious soft tissue calcifications or masses. IMPRESSION: 1. No fracture or dislocation. Reviewed by: Bob Ortiz MD on 08/30/2022 9:40 PM PDT Approved by: Bob Ortiz MD on 08/30/2022 9:40 PM PDT Station ID: [id number]
--- NOTE | 2022-08-30 21:57 | XRAY Report ---
PROCEDURE: Ankle 3 View LT INDICATIONS: pain after fall TECHNIQUE: 3 views of the ankle were acquired. COMPARISON: None. FINDINGS: Bones: No fractures or dislocations. Ankle mortise is normally aligned. No suspicious bony lesions . Soft tissues: No tibiotalar joint effusion. There is periarticular soft tissue swelling most promin ent laterally. Achilles tendon appears normal. IMPRESSION: 1. No fracture or dislocation. Reviewed by: Bob Ortiz MD on 08/30/2022 9:56 PM PDT Approved by: Bob Ortiz MD on 08/30/2022 9:56 PM PDT Station ID: [id number]
== END 2022-08-30 22:50 | disposition home or self-care (01) ==
LOC: ED 19:58
DX: S80.01XA Contusion of right knee, initial encounter (principal); S93.402A Sprain of unspecified ligament of left ankle, initial encounter; W10.9XXA Fall (on) (from) unspecified stairs and steps, initial encounter; M17.11 Unilateral primary osteoarthritis, right knee; Z79.899 Other long term (current) drug therapy
CPT/HCPCS: 1040M; 73562; 73610; 99283; 99284; A9270

== ENCOUNTER 2022-11-15 08:00 | Outpatient (CLI) | payer OTHER | END 2022-11-15 23:59 | disposition home or self-care (01) | LOC: LAB.S 08:00 | PROVIDERS: ATTEND Physician Assistant | DX: R30.0 Dysuria (principal) | CPT/HCPCS: 87086; 87181 ==

== ENCOUNTER 2023-04-02 13:41 | Emergency (ER) | payer OTHER ==
[2023-04-02] MEDS ORDERED: SODIUM CHLORIDE 0.9% 1,000 ML IV STA ×2 (14:02→16:54)
[2023-04-02 14:37] LABS: BASOPHILS # (AUTO) 0.1 10^3/uL (0.0-0.1); BASOPHILS % (AUTO) 0.7 %; EOSINOPHILS # (AUTO) 0.1 10^3/uL (0.0-0.7); HCT - HEMATOCRIT 41.7 % (37.0-47.0); HGB - HEMOGLOBIN 13.9 g/dL (12.0-16.0); LYMPHOCYTES # (AUTO) 1.8 10^3/uL (1.5-3.5); LYMPHOCYTES % (AUTO) 21.9 %; MEAN CORPUSCULAR HEMOGLOBIN 28.7 pg (27.0-31.0); MEAN CORPUSCULAR HGB CONC 33.3 g/dL (32.0-36.0); MEAN PLATELET VOLUME 10.6 fL (7.9-10.8); MONOCYTES # (AUTO) 0.7 10^3/uL (0.0-1.0); MONOCYTES % (AUTO) 8.4 %; NEUTROPHILS # (AUTO) 5.5 10^3/uL (1.5-6.6); NEUTROPHILS % (AUTO) 67.8 %; PLT - PLATELET COUNT 449 10^3/uL (130-450); RED BLOOD COUNT 4.85 10^6/uL (4.20-5.40); RED CELL DISTRIBUTION WIDTH 14.8 % (12.0-15.0); WHITE BLOOD COUNT 8.1 x10^3/uL (4.8-10.8)
[2023-04-02 14:47] LABS: ALBUMIN 4.2 g/dL (3.2-5.5); ALBUMIN/GLOBULIN RATIO 1.3 (1.0-2.2); BILIRUBIN,TOTAL 0.7 mg/dL (0.2-1.0); CALCIUM 9.8 mg/dL (8.5-10.3); CREATININE 0.9 mg/dL (0.6-1.3); MAGNESIUM 1.5 mg/dL (1.7-2.3); PHOSPHORUS 2.2 mg/dL (2.5-5.0); POTASSIUM 2.9 mmol/L (3.5-4.5); TOTAL PROTEIN 7.4 g/dL (6.4-8.9)
[2023-04-02 16:10] LABS: GLUCOSE, URINE (UA) NEGATIVE (NEGATIVE); KETONES,URINE (UA) 15 mg/dL (NEGATIVE); LEUKOCYTE ESTERASE, URINE SMALL (NEGATIVE); NITRITE,URINE NEGATIVE (NEGATIVE); OCCULT BLOOD,URINE NEGATIVE (NEGATIVE); PROTEIN,URINE 30 mg/dL (NEGATIVE); UROBILINOGEN,URINE 1 (NORMAL) E.U./dL (NORMAL)
[2023-04-02] MEDS ORDERED: MAGNESIUM SULFATE 2 GRAM 2 GM/50 ML BAG IV ONE (16:13)
[2023-04-02] MEDS ORDERED: POTASSIUM BICARB 25 MEQ TABLET PO STA (16:13)
[2023-04-02 16:15] LABS: CLARITY,URINE HAZY (CLEAR)
[2023-04-02 16:16] LABS: BILIRUBIN,URINE MODERATE (NEGATIVE); ICTOTEST,URINE POSITIVE
--- NOTE | 2023-04-02 16:18 | ED Physician Documentation ---
History of Present Illness - Stated complaint Stated Complaint: HIGH HR/WEAK - Chief complaint Chief Complaint: Cardiac - History obtained from History obtained from: Patient - History of Present Illness Pain level max: 0 Pain level now: 0 - Additonal information Additional information: Patient is a 53-year-old female who presents to the emergency department stating that she had 2 to 3 days of nausea, vomiting and diarrhea. Resolved yesterday. Today she felt weak, her Apple Watch informed her that her heart rate was high, so she came in for evaluation. No fevers. No chills. No further nausea, vomiting or diarrhea. No recent antibiotics. No abdominal pain, chest pain. No shortness of breath. Patient otherwise asymptomatic currently. 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, Other : Kidney stones HEENT: Other Psych: None, Depression, Anxiety Musculoskeletal: None - Past Surgical History Past Surgical History: Yes Ortho: Spine surgery /NURSES' REGISTRY DIRECTOR: section - Present Medications Home Medications: Ambulatory Orders Medication Instructions Recorded Confirmed Acetaminophen with Codeine PO PRN PRN 06/26/20 [Acetaminop-Codeine 120-12 mg/5] Amitriptyline [Elavil] 75 mg PO QPM 06/26/20 06/26/20 Azelastine/Fluticasone [Dymista 1 spray MADI DAILY 06/26/20 06/26/20 Nasal [place]] Montelukast [Singulair] 10 mg PO DAILY 06/26/20 06/26/20 SULFAM/TRIM 800/160 Prepack 2 06/26/20 [BACTRIM DS 800/160 Prepack 2] predniSONE [Prednisone 21-TAB dose 06/26/20 pack] oxyCODONE [Roxicodone] 5 mg PO TID PRN #20 tablet 08/30/22 - Allergies Allergies/Adverse Reactions: Allergies Allergy/AdvReac Type Severity Reaction Status Date / Time acetaminophen [From Vicodin] Allergy Hives Verified 04/02/23 13:58 adhesive tape Allergy Hives Verified 04/02/23 13:58 clarithromycin [From Biaxin] Allergy Hives Verified 04/02/23 13:58 clindamycin Allergy Hives Verified 04/02/23 13:58 hydrocodone [From Vicodin] Allergy Hives Verified 04/02/23 13:58 Penicillins Allergy Hives Verified 04/02/23 13:58 - Social History Does the pt smoke?: No Smoking Status: Never smoker Does the pt drink ETOH?: No Does the pt have substance abuse?: No - Immunizations Immunizations are current?: Yes - POLST Patient has POLST: No PD ED PE NORMAL - Vitals Vital signs reviewed: Yes - General General: Alert and oriented X 3, No acute distress - HEENT HEENT: PERRL, Moist mucous membranes - Neck Neck: Supple, no meningeal sign - Cardiac Cardiac: RRR, Strong equal pulses - Respiratory Respiratory: No respiratory distress, Clear bilaterally - Abdomen Abdomen: Soft, Non tender, Non distended - Back Back: No CVA TTP - Derm Derm: Warm and dry - Extremities Extremities: No edema, No calf tenderness / cord - Neuro Neuro: Alert and oriented X 3 - Psych Psych: Normal mood, Normal affect Results - Vitals Vitals: Vital Signs - 24 hr 04/02/23 04/02/23 04/02/23 13:50 15:58 16:00 Temperature 36.4 C L 36.5 C 36.7 C Heart Rate 117 H 93 80 Respiratory 18 19 15 Rate Blood Pressure 136/83 H 116/78 149/90 H O2 Saturation 100 99 97 04/02/23 04/02/23 04/02/23 16:30 17:00 17:30 Temperature 36.4 C L Heart Rate 93 Respiratory 16 Rate Blood Pressure 116/75 117/69 110/69 O2 Saturation 100 Oxygen O2 Source Room air - Labs Labs: Laboratory Tests 04/02/23 04/02/23 04/02/23 14:23 14:23 16:07 WBC 8.1 RBC 4.85 Hgb 13.9 Hct 41.7 MCV 86.0 MCH 28.7 MCHC 33.3 RDW 14.8 Plt Count 449 MPV 10.6 Neut # (Auto) 5.5 Lymph # (Auto) 1.8 Dane # (Auto) 0.7 Eos # (Auto) 0.1 Baso # (Auto) 0.1 Absolute Nucleated RBC 0.00 Nucleated RBC % 0.0 Sodium 139 Potassium 2.9 L Chloride 108 Carbon Dioxide 21 Anion Gap 10.0 BUN 14 Creatinine 0.9 Estimated GFR (MDRD) 66 L Glucose 107 H Calcium 9.8 Phosphorus 2.2 L Magnesium 1.5 L Total Bilirubin 0.7 AST 24 ALT 29 Alkaline Phosphatase 96 Total Protein 7.4 Albumin 4.2 Globulin 3.2 Albumin/Globulin Ratio 1.3 Lipase 23 Urine Color DARK YELLOW Urine Clarity HAZY Urine pH 6.0 Ur Specific [place] 1.020 Urine Protein 30 H Urine Glucose (UA) NEGATIVE Urine Ketones 15 H Urine Occult Blood NEGATIVE Urine Nitrite NEGATIVE Urine Bilirubin MODERATE H Urine Urobilinogen 1 (NORMAL) Ur Leukocyte Esterase SMALL H Urine RBC 0-5 Urine WBC 6-10 H Ur Squamous Epith Cells MOD Squamous H Amorphous Sediment Moderate Urine Bacteria Moderate H Urine Mucus Few Strands Ur Microscopic Review INDICATED Urine Culture Comments NOT INDICATED PD Medical Decision Making - ED course Complexity details: reviewed results, re-evaluated patient, considered differential, d/w patient ED course: 53-year-old female with what appears to be dehydration following what appears to be likely a viral gastroenteritis. She is also mildly hypokalemic and hypomagnesemic. Given magnesium, potassium and IV fluids. Heart rate returned to normal. Patient feels much better. Will continue supportive care at home and have her follow-up with her PCP for further care. Patient counseled regarding signs and symptoms for which I believe and urgent re-evaluation would be necessary. Patient with good understanding of and agreement to plan and is comfortable going home at this time This document was made in part using voice recognition software. While efforts are made to proofread this document, sound alike and grammatical errors may occur. Departure - Departure Disposition: 01 Home, Self Care Clinical Impression: Dehydration, Hypokalemia, Hypomagnesemia Condition: Good Instructions: ED Dehydration Follow-Up: NAE GAGE MD [Primary Care Provider] - Comments: Please make sure you are drinking plenty of fluids at home. Your magnesium and potassium were low today as well. These were both replaced in the emergency department. Please follow-up with your doctor as needed for further care. Please return if you worsen. Forms: PCP List Discharge Date/Time: 04/02/23 17:30
[2023-04-02 16:19] LABS: AMORPHOUS SEDIMENT,UR Moderate /LPF; BACTERIA,URINE Moderate /HPF (None Seen); MUCUS,URINE Few Strands; RBC,URINE 0-5 /HPF (0-5); SQUAMOUS EPITHELIAL CELL,UR MOD Squamous (<= Few)
[2023-04-02 18:03] VITALS: BP 110/69; O2SAT 100
== END 2023-04-02 17:30 | disposition home or self-care (01) ==
LOC: ED 13:41
DX: E86.0 Dehydration (principal); E87.6 Hypokalemia; E83.42 Hypomagnesemia
CPT/HCPCS: 36415; 80053; 81001; 83690; 83735; 84100; 85025; 93005; 96361; 96374; 99283; 99284; A9270; 81003; 87086

== ENCOUNTER 2023-10-01 11:31 | Outpatient (CLI) | payer OTHER ==
[2023-10-01 14:56] LABS: BASOPHILS # (AUTO) 0.1 10^3/uL (0.0-0.1); BASOPHILS % (AUTO) 1.1 %; EOSINOPHILS # (AUTO) 0.2 10^3/uL (0.0-0.7); EOSINOPHILS % (AUTO) 2.5 %; HCT - HEMATOCRIT 42.2 % (37.0-47.0); HGB - HEMOGLOBIN 13.1 g/dL (12.0-16.0); LYMPHOCYTES # (AUTO) 1.7 10^3/uL (1.5-3.5); LYMPHOCYTES % (AUTO) 27.2 %; MEAN CORPUSCULAR HEMOGLOBIN 29.6 pg (27.0-31.0); MEAN CORPUSCULAR VOLUME 95.3 fL (81.0-99.0); MONOCYTES # (AUTO) 0.4 10^3/uL (0.0-1.0); MONOCYTES % (AUTO) 5.8 %; NEUTROPHILS % (AUTO) 63.2 %; PLT - PLATELET COUNT 352 10^3/uL (130-450); RED BLOOD COUNT 4.43 10^6/uL (4.20-5.40); RED CELL DISTRIBUTION WIDTH 13.6 % (12.0-15.0); WHITE BLOOD COUNT 6.4 x10^3/uL (4.8-10.8)
[2023-10-01 16:02] LABS: ALBUMIN/GLOBULIN RATIO 1.6 (1.0-2.2); BILIRUBIN,TOTAL 0.6 mg/dL (0.2-1.0); CALCIUM 9.5 mg/dL (8.5-10.3); CREATININE 0.8 mg/dL (0.6-1.3); POTASSIUM 4.3 mmol/L (3.5-4.5); TOTAL PROTEIN 6.5 g/dL (6.4-8.9)
[2023-10-01 21:30] LABS: ESTIMATED AVERAGE GLUCOSE 94 mg/dL (70-100); HEMOGLOBIN A1c% 4.9 % (4.27-6.07)
== END 2023-10-01 11:32 | disposition home or self-care (01) ==
LOC: LAB.S 11:31
DX: K91.2 Postsurgical malabsorption, not elsewhere classified (principal)
CPT/HCPCS: 36415; 80053; 82306; 82607; 82746; 83036; 84425; 85025